=== PATIENT | female | born 1985 | race Caucasian/White ===

== ENCOUNTER → 2023-08-04 07:37 | Outpatient (CLI) | payer OTHER, SELFPAY ==
--- NOTE | ~2023-08-04 | XR_ITS ---
EXAMINATION: XR hand RT 2V, XR wrist LT 2V, XR hand LT 2V, XR wrist RT 2V DATE: 08/04/2023 08:17 INDICATION: Rheumatoid arthritis without rheumatoid factor of multiple sites TECHNIQUE: 1. Posteroanterior and lateral views of the left wrist were obtained. 2. Dorsal palmar and lateral views of the left hand were obtained. 3. Posteroanterior and lateral views of the right wrist were obtained. 4. Dorsal palmar and lateral views of the right hand were obtained. COMPARISON: None. FINDINGS: Alignment of the hands and wrists is normal. No fracture identified. Minimal to mild polyarticular o steoarthritis characterized by nonuniform joint space narrowing or tiny marginal osteophytes at the b ilateral interphalangeal joints and at the bilateral first metacarpophalangeal and triscaphe joints. No erosions to suggest inflammatory arthritis such as rheumatoid. No focal soft tissue swelling. IMPRESSION: 1. Typical distribution of minimal to mild polyarticular osteoarthritis at the bilateral hands. Reviewed, dictated and finalized at location A. IMPRESSION: 1. Typical distribution of minimal to mild polyarticular osteoarthritis at the bilateral hands. IMPRESSION: 1. Typical distribution of minimal to mild polyarticular osteoarthritis at the bilateral hands. IMPRESSION: 1. Typical distribution of minimal to mild polyarticular osteoarthritis at the bilateral hands.
--- NOTE | ~2023-08-04 | XR_ITS ---
EXAMINATION: XR ankle LT 2V, XR ankle RT 2V, XR foot LT 2V, XR foot RT 2V DATE: 08/04/2023 08:17 INDICATION: Rheumatoid arthritis without rheumatoid factor at multiple sites TECHNIQUE: 1. Anteroposterior and lateral view of the right ankle were obtained. 2. Dorsoplantar and lateral views of the right foot were obtained. 3. Anteroposterior and lateral view of the left ankle were obtained. 4. Dorsoplantar and lateral views of the left foot were obtained. COMPARISON: None. FINDINGS: Normal alignment at both the left and right feet and ankles. No fractures. Polyarticular osteoarthrit is with nonuniform joint space narrowing and marginal osteophytes, moderate severity at the left firs t and fourth metatarsophalangeal joints and mild at many of the remaining bilateral metatarsophalange al joints and multiple bilateral interphalangeal joints. No erosions to suggest inflammatory arthriti s. Soft tissues are unremarkable with no ankle joint effusion on either the left or right. IMPRESSION: 1. 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 No erosions to suggest inflammatory arthritis. Reviewed, dictated and finalized at location A. IMPRESSION: 1. 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 No erosions to suggest inflammatory arthritis. IMPRESSION: 1. 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 No erosions to suggest inflammatory arthritis. IMPRESSION: 1. 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 No erosions to suggest inflammatory arthritis.
--- NOTE | ~2023-08-04 | XR_ITS ---
EXAM: XR sacroiliac joints min 3V DATE: 08/04/2023 08:17 HISTORY: Rheumatoid arthritis without rheumatoid factor, multiple sit . COMPARISON: None available. FINDINGS: Normal mineralization. No fracture or dislocation. No lytic or blastic lesion. Joint space s and physes are maintained. No erosion or periosteal change. Soft tissues within normal limits. IMPRESSION: Normal SI joint radiograph findings. Reviewed, dictated and finalized at location K.
== END ==
DX: M06.09 Rheumatoid arthritis without rheumatoid factor, multiple sites (principal); M19.041 Primary osteoarthritis, right hand; M19.042 Primary osteoarthritis, left hand; M19.071 Primary osteoarthritis, right ankle and foot; M19.072 Primary osteoarthritis, left ankle and foot
CPT/HCPCS: 72202; 73100; 73120; 73600; 73620